=== PATIENT | male | born 1965 | race Caucasian/White ===

== ENCOUNTER 2020-06-10 07:58 | Day surgery (SDC) | payer OTHER ==
[~2020-06-10] VITALS: Ht 170.2 cm; Wt 108.0 kg
--- NOTE | ~2020-06-10 | D ---
[facility] [place] [address] DISCHARGE SUMMARY Name: AMRIT CH Room #: [place] [facility] [place] Freddie.#: [id number] Admission: 06/10/20 Attend Phys: Enoc Carrillo MD Discharge: 06/11/20 Date of : 61 Report #: [id number] THIS REPORT FOR: cc: Yesica Chapman Elizabeth DO Clymer,Enoc Miramontes MD ~ DATE OF SERVICE: 06/11/2020 FINAL DIAGNOSIS: Multilevel degenerative lumbar spondylosis and spinal stenosis with radiculopathy. OPERATIONS AND PROCEDURES: Two-level lumbar laminectomy for decompression of spinal stenosis. HISTORY OF PRESENT ILLNESS: This heavy, but otherwise well-appearing 55-year-old gentleman complains of chronic progressive pain and weakness of both lower extremities associated with some low back pain. Clinical exam and MRI study confirm rather significant multilevel degenerative spondylosis and spinal stenosis with associated radiculopathy. The patient and family understand the situation well and have decided to go ahead with surgical decompression. HOSPITAL COURSE: The patient was admitted and taken to the operating room on 06/10/2020. He underwent a two-level lumbar decompression, which he tolerated well. There were no significant problems or postoperative complications. A Hemovac was left in place for 24 hours and removed on the day of discharge. He was able to advance to oral analgesics and a regular diet. He seems to be making good progress and has no significant problems or symptoms or complaints at this time. He notes that his leg pain and numbness are much improved. His back pain is moderate, but manageable. DISCHARGE MEDICATIONS: Include hydrocodone 10 mg q.4-6 hours p.r.n. for pain, Prozac 20 mg every day, Lasix 40 mg b.i.d., Flexeril 10 mg t.i.d. p.r.n., atorvastatin 10 mg daily, glipizide 5 mg daily, Lyrica 75 mg b.i.d. p.r.n., Mobic 7.5 mg b.i.d. p.r.n., and aspirin 81 mg daily. He will call me if there are any problems or questions. We will plan to see him back in my office in one week for followup and in two weeks for suture removal. By: 1129 [id number] Enoc Carrillo MD /nt
[~2020-06-10 07:58] MED LIST: CITALOPRAM HBR40 MG PO; FLEXERIL PO; FUROSEMIDE 40 M40 M1 PO; GLIPIZIDE5 MG PO; HYDROCODON-ACE1 EAC8 PO; IRON325 M1 PO; LIPITOR10 MG PO; LO-DOSE ASPIRIN81 M1 PO; LYRICA 75 MG CA75 MG PO; MOBIC7.5 MG PO; POTASSIUM99 M1 PO; PROZAC20 M1 PO; VITAMIN B12-FO1 EAC1 PO; VITAMIN D325 MC3 PO
[2020-06-10 08:44] LABS: CALCIUM 9.3 mg/dL (8.5-10.1)
[2020-06-10 08:49] LABS: ALBUMIN 3.7 g/dL (3.4-5.0); TOTAL BILIRUBIN 0.5 mg/dL (0.2-1.0); TOTAL PROTEIN 6.9 g/dL (6.4-8.2)
[2020-06-10 09:22] VITALS: BP 132/91
--- NOTE | 2020-06-10 10:42 | EKG ---
[facility] [address] [place] [address] ELECTROCARDIOGRAM REPORT Name: AMRIT CH Room #: 150-6 [facility] [place] M.R.#: [id number] Admission: 06/10/20 Attend Phys: Enoc Carrillo MD Discharge: Date of : 61 Report #: [id number] THIS REPORT FOR: cc: Yesica Chapman,Winston Vasquez MD ~ <ELECTRONICALLY SIGNED> By: Winston Gonsalez MD 06/10/20 1042 [id number] Winston Gonsalez MD /EPI
[2020-06-10 12:44] VITALS: BP 128/83
[2020-06-10 13:00] VITALS: BP 122/81
--- NOTE | 2020-06-10 14:02 | NUR ---
PT ARRIVED ON THE UNIT, AOX4, VSS, PAIN IN LOWER BACK CONTROLLED WITH IV PAIN ANALGESIC. PT RATES PAIN 5/10, TOLERATING CLEAR LIQUIDS. HEMOVAC DRAIN IS PATENT WITH BLOOD FLOW. PT ON 2L 02 PER NC. AQUCELL DRESSING ON BACK CDI. IV IN RIGHT HAND IS PATENT. PT CALLS APPROPRIATELY, FALL PRECAUTIONS IN PLACE. WILL CONTINUE TO MONITOR.
[2020-06-10 16:15] VITALS: BP 129/85
[2020-06-10 19:25] VITALS: BP 112/71
--- NOTE | 2020-06-11 04:50 | NUR ---
ASSUMED PT CARE AT [facility]. PT IS A&OX4. RIGHT HAND IV WITH FLUIDS RUNNING. PT HAS NO COMPLAINTS OF N/V. PT COMPLAINS OF PAIN AT A 4 ON HIS BACK. PT STATES THE PAIN NEVER LEAVES COMPLETELY. PT DRESSING IS C/D/I. PT TOLERATES MEDICATION. PT USES THE URINAL IN THE BED. HEMOVAC EMPTIED. FALL BUNDLE IN PLACE WITH CALL LIGHT IN REACH. PT IS ASLEEP IN HIS ROOM. WILL CONTINUE TO MONITOR.
[2020-06-11 07:56] VITALS: BP 111/76
--- NOTE | 2020-06-11 09:24 | NUR ---
ASSESSMENT: CM REVIEWED CHART AND SPOKE WITH PT. PT IS ALERT AND ORIENTED X4. PT IS S/P LUMBAR LAMINECTOMY. PT REPORTS LIVING IN AN APT BY HIMSELF. PT REPORTS HIS CHILDREN LIVE A BLOCK AWAY AND CAN HELP IF NEEDED. PT REPORTS HAVING 4 STEPS WITH HANDRAILS TO ENTER APT. PT REPORTS HE AMBULATES USING A CANE AND HAS A WALKER AT HOME. PT REPORTS HE IS INDEPENDENT WITH ADLS. PT REPORTS NO HX OF HH AND FEELS HE HAS NO NEED FOR IT. CM DISCUSSED ROLE. PT DOES NOT ANTICIPATE HAVING ANY NEEDS FROM CM.
--- NOTE | 2020-06-11 11:12 | O ---
[facility] [place] [address] OPERATIVE REPORT Name: AMRIT CH Room #: 438-P [facility] M.R.#: [id number] Admission: 06/10/20 Attend Phys: Enoc Carrillo MD Discharge: Date of : 61 Report #: [id number] THIS REPORT FOR: cc: Yesica Chapman Elizabeth DO Clymer,Enoc Miramontes MD ~ DATE OF SERVICE: 06/10/2020 PREOPERATIVE DIAGNOSIS: Lumbar spinal stenosis with radiculopathy at L3-L4 and L4-L5 levels. POSTOPERATIVE DIAGNOSIS: Lumbar spinal stenosis with radiculopathy at L3-L4 and L4-L5 levels. PROCEDURE: Decompressive lumbar laminectomy, L3, L4 and L5 for decompression spinal stenosis. SURGEON: Enoc Carrillo MD INDICATIONS: This heavy 55-year-old gentleman presents with chronic progressive pain, principally involving the right lower extremity. He also has some general sense of numbness and weakness in both lower extremities. He also complains of moderate low back pain. Clinical exam, x-rays and MRI study confirmed rather significant degenerative lumbar spondylosis. This results in mild disk bulging, but more severe facet hypertrophy and hypertrophy of the ligamentum which causes significant spinal stenosis with a canal diameter of about 7 mm at L3-L4 and L4-L5 levels. There is less severe narrowing above and below those levels. Given these findings and significant ongoing symptoms with objective evidence of right-sided radiculopathy, we have elected to go ahead with 2-level lumbar decompression for spinal stenosis. DESCRIPTION OF PROCEDURE: The patient was taken to the operating room where he was placed under general anesthesia. Prophylactic intravenous antibiotics were administered. He was turned to the prone position. Low back was meticulously prepped and draped. A skin incision was made centered over the L4 lamina. This was carried through fascia and the muscles were retracted out laterally. The lamina of L3, L4 and L5 were identified with C-arm visualization. The spinous processes of those vertebrae were removed and the lamina was opened beginning in the mid portion and extending both proximally and distally. The canal was quite tight at L3-L4 and L4-L5 levels. This is principally due to facet hypertrophy and hypertrophy of ligamentum. The disk at each level was palpated and found to be slightly bulging, but without disk herniation or any other problems which would require an open diskectomy procedure. The canal was much more open above the L3-L4 disk and below the L4-L5 disk. C-arm views with markers in place demonstrated that I was at the upper aspect of the L3 lamina and the lower aspect of the L5 lamina, which was clearly above and below the area of [facility] [address] [place] [address] OPERATIVE REPORT Name: AMRIT CH Room #: 438-P [facility] M.R.#: [id number] Admission: 06/10/20 Attend Phys: Enoc Carrillo MD Discharge: Date of : 61 Report #: [id number] significant stenosis. The dissection was extended out laterally, both toward the right and left, undercutting the facet joints to create more open lateral gutters. The nerve roots were palpated and found to be freed up and without further impingement. The entire wound was copiously irrigated. Good hemostasis was established. A single Hemovac was left in the wound exiting through a separate stab incision. The dura was covered with a small sheet of Gelfoam soaked in thrombin. The muscle layer was closed with 0 Monocryl. The fascia was also closed with 0 Monocryl. The deeper adipose tissues and the more superficial adipose tissues were closed with running 0 Monocryl. The skin was closed with skin vasiliy. A sterile dressing was applied. The patient was awakened and returned to recovery room in good condition. <ELECTRONICALLY SIGNED> By: Enoc Carrillo MD 06/11/20 1112 [id number] Enoc Carrillo MD /nt
[2020-06-11] MEDS ORDERED: NORCO 10-325 T1 EACH PO (11:22)
[2020-06-11 11:58] VITALS: BP 111/76
--- NOTE | 2020-06-11 14:17 | NUR ---
Assumed care of pt. at 0700. Pt. was calm and cooperative. Pt. was able to get up and move around with OT/PT who both cleared him for DC. Dr. Carrillo also cleared pt. for DC. Pt. was given DC education and info as well as perscriptions and medication info sheets. Pt. son is not able to pick him up until 1700.
== END 2020-06-11 16:25 | disposition home or self-care (01) ==
LOC: OR 07:58 → TBA 08:02 → 4S 12:17 → OR 15:54
PROVIDERS: ATTEND Orthopaedic Surgery
DX: M48.061 Spinal stenosis, lumbar region without neurogenic claudication (principal); M54.16 Radiculopathy, lumbar region; G89.29 Other chronic pain; E11.9 Type 2 diabetes mellitus without complications; E78.5 Hyperlipidemia, unspecified; F32.9 Major depressive disorder, single episode, unspecified; F41.9 Anxiety disorder, unspecified; G47.30 Sleep apnea, unspecified; K21.9 Gastro-esophageal reflux disease without esophagitis; Z98.890 Other specified postprocedural states; Z79.899 Other long term (current) drug therapy; Z98.84 Bariatric surgery status; Z88.0 Allergy status to penicillin; Z88.2 Allergy status to sulfonamides; Z88.8 Allergy status to other drugs, medicaments and biological substances
CPT/HCPCS: 10102; 50010; 50101; 50402; 50704; 50850; 51412; 56525; 62110; 62900; 70005